=== PATIENT | female | born 1955 | race Caucasian/White ===

== ENCOUNTER → 2021-08-01 | Outpatient (CLI) | payer MEDICARE, OTHER ==
[~2021-08-01] MED LIST: Advair Hfa 230-12 GM; CALCA400CH PO; CETI5 PO; DOCU100 PO; ESTR2; HYDSUL200; MELO7.5 PO; PROG100 PO; ZOLP5 PO
== END | disposition home or self-care (01) ==
LOC: LAB SHORT 12:00
DX: R30.0 Dysuria (principal)
CPT/HCPCS: 87077; 87086; 87186

== ENCOUNTER 2022-07-28 10:59 | Day surgery (SDC) | payer MEDICARE ==
[~2022-07-28] VITALS: Ht 170.2 cm; Wt 54.9 kg
[2022-07-28] MEDS ORDERED: L-THREONINE500 MG PO (11:27)
--- NOTE | 2022-07-28 12:00 | NUR ---
07/28/22 Yomaira Rodriguez 2MLS OF LIDOCAINE 1% WITH EPI 1:200,000 INJECTED INTO BILATERAL TURBINATES (4MLS TOTAL) AT START OF CASE BY . 6MLS OF LOCAL POURED ONTO STERILE FIELD FOR USE DURING CASE.
--- NOTE | 2022-07-28 14:22 | NUR ---
07/28/22 1422 Liseth Irving 1400: CHANGED TO MUSTACHE DRESSING FROM TAPE FOR COMFORT, SMALL AMOUNT OF BLOOD ON GAUZE.
== END 2022-07-28 14:15 | disposition home or self-care (01) ==
LOC: ORSCSDS 10:59
PROVIDERS: Otolaryngology
PROC: 09BM0ZZ Excision of Nasal Septum, Open Approach (ICD-10-PCS; principal; 2022-07-28 12:30)
PROC: 09SL0ZZ Reposition Nasal Turbinate, Open Approach (ICD-10-PCS; principal; 2022-07-28 12:30)
DX: J34.2 Deviated nasal septum (principal); J34.3 Hypertrophy of nasal turbinates; E03.9 Hypothyroidism, unspecified; Z79.899 Other long term (current) drug therapy
CPT/HCPCS: J0171; J1100; J2250; J2405; J2704; J2765; J3010; J7120

== ENCOUNTER 2023-05-24 07:25 | Day surgery (SDC) | payer MEDICARE ==
[~2023-05-24] VITALS: Ht 167.6 cm; Wt 56.7 kg
[~2023-05-24 07:25] MED LIST changes: +L-THREONINE500 MG PO
[2023-05-24] MEDS ORDERED: DICL75ER (07:45)
[2023-05-24] MEDS ORDERED: CYCL0.05OP (07:46)
[2023-05-24] MEDS ORDERED: LIOT5 (07:46)
[2023-05-24 09:36] VITALS: BP 111/83
== END 2023-05-24 09:35 | disposition home or self-care (01) ==
LOC: ORSCSDS 07:25
PROVIDERS: Surgery
PROC: 0DJD8ZZ Inspection of Lower Intestinal Tract, Via Natural or Artificial Opening Endoscopic (ICD-10-PCS; principal; 2023-05-24 08:45)
DX: Z12.11 Encounter for screening for malignant neoplasm of colon (principal); Z86.010 Personal history of colon polyps; Z80.0 Family history of malignant neoplasm of digestive organs; Z79.899 Other long term (current) drug therapy
CPT/HCPCS: J2704; J7120

== ENCOUNTER → 2023-06-29 | Outpatient (CLI) | payer MEDICARE ==
[~2023-06-29] MED LIST changes: +CYCL0.05OP; +DICL75ER; +LIOT5
== END ==
LOC: LAB SHORT 15:24 → LAB 15:24
DX: L08.9 Local infection of the skin and subcutaneous tissue, unspecified (principal)
CPT/HCPCS: 87070; 87205